=== PATIENT | male | born 1990 ===

== ENCOUNTER → 2021-10-28 | Outpatient (CLI) | payer OTHER | LOC: MHCPAIN 12:52 | DX: M54.81 Occipital neuralgia (principal); M47.812 Spondylosis without myelopathy or radiculopathy, cervical region; G89.29 Other chronic pain | CPT/HCPCS: G0463 ==

== ENCOUNTER → 2021-11-05 | Outpatient (CLI) | payer OTHER | LOC: MHCPAIN 13:31 | DX: M54.81 Occipital neuralgia (principal); R51.9 Headache, unspecified | CPT/HCPCS: J1040 ==

== ENCOUNTER 2021-11-12 10:30 | Outpatient (RCR) | payer OTHER | END 2021-11-18 | disposition home or self-care (01) | LOC: WSST | DX: R48.9 Unspecified symbolic dysfunctions (principal); R41.3 Other amnesia ==

== ENCOUNTER → 2021-11-26 | Outpatient (CLI) | payer OTHER | LOC: MHCPAIN 08:35 | DX: M47.812 Spondylosis without myelopathy or radiculopathy, cervical region (principal); M54.81 Occipital neuralgia; M54.2 Cervicalgia | CPT/HCPCS: G0463 ==

== ENCOUNTER 2021-12-10 09:45 | Outpatient (RCR) | payer OTHER | END 2021-12-16 | disposition home or self-care (01) | LOC: WSST | DX: G31.84 Mild cognitive impairment of uncertain or unknown etiology (principal); R48.9 Unspecified symbolic dysfunctions; Z87.820 Personal history of traumatic brain injury ==